=== PATIENT | female | born 1990 | race Caucasian/White ===

== ENCOUNTER 2017-11-24 10:51 | Day surgery (SDC) | payer OTHER ==
[~2017-11-24] VITALS: Ht 160 cm; Wt 69.5 kg
[~2017-11-24 10:51] MED LIST: DIPH25TA65 PO; IBUP200T49 PO; NITR100C56 PO; OXYC-302 PO; PNV1TABL4 PO
[2017-11-24] MEDS ORDERED: ONDANSETRON ODT 4 MG ONE (11:17)
[2017-11-24] MEDS ORDERED: MORPHINE SULFATE 4 MG/ML, 1ML ONE ×2 (11:17→12:08)
[2017-11-24] MEDS: MORPHINE SULFATE 4 MG/ML, 1ML IVPush PRN ×2 (11:25→12:10)
[2017-11-24] MEDS ORDERED: ONDANSETRON ODT 4 MG PO ONE (11:30)
[2017-11-24 11:40] LABS: BASOPHILS # (AUTO) 0.02 x10^3/uL (0-0.1); BASOPHILS % (AUTO) 0 % (0-1); EOSINOPHILS # (AUTO) 0.09 x10^3/uL (0-0.4); EOSINOPHILS % (AUTO) 1 % (1-7); LYMPHOCYTES # (AUTO) 1.26 x10^3/uL (1-3.4); LYMPHOCYTES % (AUTO) 17 % (22-44); MD NO; MEAN CORPUSCULAR HEMOGLOBIN 31.2 pg (27.0-34.8); MEAN CORPUSCULAR HGB CONC 34.5 g/dL (32.4-35.8); MEAN CORPUSCULAR VOLUME 90.4 fL (80-100); MEAN PLATELET VOLUME 9.5 fL (7.4-10.4); MONOCYTES # (AUTO) 0.54 x10^3/uL (0.2-0.8); MONOCYTES % (AUTO) 7 % (2-9); NEUTROPHILS # (AUTO) 5.72 x10^3/uL (1.8-6.8); NEUTROPHILS % (AUTO) 75 % (42-75); PLATELET COUNT 273 x10^3/uL (130-400); RED BLOOD COUNT 5.03 x10^6/uL (3.82-5.3); RED CELL DISTRIBUTION WIDTH 13.1 % (9.6-15.2)
[2017-11-24 11:49] LABS: ANION GAP 9 mmol/L (5-15); CALCIUM 8.8 mg/dL (8.5-10.1); CHLORIDE 104 mmol/L (98-107)
[2017-11-24 11:55] LABS: ALANINE AMINOTRANSFERASE 29 U/L (12-78); ALKALINE PHOSPHATASE 64 U/L (45-117); BILIRUBIN,TOTAL 0.5 mg/dL (0.2-1.0); TOTAL PROTEIN 7.8 g/dL (6.4-8.2)
[2017-11-24 12:24] LABS: MICROSCOPIC AUTO
[2017-11-24 12:25] LABS: CULTURE INDICATED? YES
[2017-11-24] MEDS ORDERED: CEFTRIAXONE PMX 1GM/50ML 50 ML ONE (12:41)
[2017-11-24] MEDS ORDERED: CEFTRIAXONE 1,000 MG IV ONE (13:00)
[2017-11-24] MEDS ORDERED: CEFTRIAXONE 1,000 MG in SODIUM CHLORIDE 0.9% 50 ML IVPB ONE (13:00)
[2017-11-24] MEDS ORDERED: PROMETHAZINE 25 MG/ML, 1ML ONE (13:02)
[2017-11-24] MEDS ORDERED: PROMETHAZINE 25 MG/ML, 1ML IM ONE (14:00)
[2017-11-24] MEDS ORDERED: BUPIVACAINE/PF-EPI 0.5% 1:200K ONE (14:05)
[2017-11-24] MEDS ORDERED: KETOROLAC 30 MG/1 ML ONE (14:13)
[2017-11-24] MEDS ORDERED: FENTANYL PF 100 MCG/2ML ONE ×3 (14:14→15:13)
[2017-11-24] MEDS ORDERED: MIDAZOLAM 1 MG/ML, 2ML ONE (14:14)
[2017-11-24] MEDS ORDERED: LABETALOL 5MG/ML, 20ML IV PRN (14:30)
[2017-11-24] MEDS ORDERED: MEPERIDINE/PF 25MG/0.5ML IVPush PRN (14:30)
[2017-11-24] MEDS ORDERED: HYDROmorphone 1 MG/ML, 1ML IV PRN ×2 (14:30→17:00)
[2017-11-24] MEDS ORDERED: MIDAZOLAM 1 MG/ML, 2ML IV PRN (14:30)
[2017-11-24] MEDS ORDERED: PROMETHAZINE 25 MG/ML, 1ML IV PRN (14:30)
[2017-11-24] MEDS ORDERED: ONDANSETRON ODT 8 MG PO PRN (14:30)
[2017-11-24] MEDS ORDERED: EPHEDRINE 50 MG/ML, 1ML IM PRN (14:30)
[2017-11-24] MEDS ORDERED: OXYcodone 5 MG/5 ML ORAL.SOL UDC PO PRN (14:30)
[2017-11-24] MEDS ORDERED: ACETAMINOPHEN 325 MG TABLET PO PRN (14:30)
[2017-11-24] MEDS ORDERED: SCOPOLAMINE PATCH, 1.5MG PATCH.TD72 TD PRN (14:30)
[2017-11-24] MEDS ORDERED: ONDANSETRON 2MG/ML, 2ML IV PRN (14:30)
[2017-11-24] MEDS ORDERED: ALBUTEROL/IPRATROPIUM 2.5MG/0.5MG, 3 ML NPPB PRN (14:30)
[2017-11-24] MEDS ORDERED: FENTANYL PF 100 MCG/2ML IV PRN (14:30)
[2017-11-24] MEDS ORDERED: SUGAMMADEX 200 MG/2 ML IVPush ONE (14:53)
[2017-11-24] MEDS ORDERED: CEFAZOLIN 1,000 MG ONE (15:01)
[2017-11-24] MEDS ORDERED: NEOSTIGMINE 1 MG/ML, 10ML ONE (15:01)
[2017-11-24] MEDS ORDERED: PROPOFOL 10 MG/ML, 20ML ONE (15:01)
[2017-11-24] MEDS ORDERED: GLYCOPYRROLATE 0.2MG/1ML, 5ML ONE (15:01)
[2017-11-24] MEDS ORDERED: ROCURONIUM 10MG/ML,5ML ONE (15:01)
[2017-11-24] MEDS ORDERED: SUCCINYLCHOLINE 20 MG/ML, 10ML ONE (15:01)
[2017-11-24] MEDS ORDERED: DEXAMETHASONE 4 MG/ML, 1ML ONE (15:01)
[2017-11-24] MEDS ORDERED: ONDANSETRON 2MG/ML, 2ML ONE (15:01)
[2017-11-24] MEDS ORDERED: ACETAMINOPHEN 650 MG/20.3 ML UDC ONE (15:13)
[2017-11-24] MEDS ORDERED: OXYcodone 5 MG/5 ML ORAL.SOL UDC ONE (15:13)
[2017-11-24] MEDS ORDERED: MEPERIDINE/PF 50 MG/ML ONE (15:17)
[2017-11-24 16:28] VITALS: BP 139/89
[2017-11-24] MEDS ORDERED: OXYcodone/APAP 5/325MG TABLET PO PRN (17:00)
[2017-11-24] MEDS ORDERED: LACTATED RINGERS 1,000 ML IV SCH (17:00)
[2017-11-24] MEDS ORDERED: ONDANSETRON 2MG/ML, 2ML IVPush PRN (17:00)
[2017-11-24] MEDS ORDERED: MORPHINE SULFATE 4 MG/ML, 1ML IVPush PRN (17:00)
[2017-11-24] MEDS ORDERED: HYDR-3237 PO (17:17)
[2017-11-24] MEDS ORDERED: ONDA4TAB13 SL (17:18)
[2017-11-24] MEDS: HYDROcodone/APAP 5/325 TABLET PO PRN ×2 (18:06→20:27)
[2017-11-24 20:30] VITALS: BP 127/85
== END 2017-11-24 21:10 | disposition home or self-care (01) ==
LOC: ED 12:31 → UNDOADMIN 12:34 → EDIP 12:34 → OR 12:34 → 4NOR 16:20 → EDIP 16:20 → UNDODISIN 21:10 → OR 21:10
PROVIDERS: ATTEND Surgery
DX: K80.12 Calculus of gallbladder with acute and chronic cholecystitis without obstruction (principal); Z88.8 Allergy status to other drugs, medicaments and biological substances; Z91.040 Latex allergy status; J45.909 Unspecified asthma, uncomplicated
CPT/HCPCS: 36415; 47562; 76700; 80053; 81001; 83690; 84703; 85025; 87086; 88304; 96365; 96372; 96375; 96376; 99285; J0330; J0690; J0696; J1100; J1885; J2175; J2250; J2405; J2550; J2704; J2710; J3010; J3490; Q0162; G0378

== ENCOUNTER 2017-12-22 19:01 | Emergency (ER) | payer OTHER ==
[~2017-12-22] VITALS: Ht 160 cm; Wt 72.0 kg
[~2017-12-22 19:01] MED LIST changes: +HYDR-3237 PO; +ONDA4TAB13 SL
[2017-12-22] MEDS ORDERED: ONDANSETRON ODT 4 MG ONE (19:50)
[2017-12-22 19:51] LABS: BASOPHILS # (AUTO) 0.03 x10^3/uL (0-0.1); BASOPHILS % (AUTO) 0 % (0-1); EOSINOPHILS # (AUTO) 0.76 x10^3/uL (0-0.4); EOSINOPHILS % (AUTO) 10 % (1-7); LYMPHOCYTES # (AUTO) 2.82 x10^3/uL (1-3.4); LYMPHOCYTES % (AUTO) 36 % (22-44); MD NO; MEAN CORPUSCULAR HEMOGLOBIN 30.6 pg (27.0-34.8); MEAN CORPUSCULAR HGB CONC 33.7 g/dL (32.4-35.8); MEAN CORPUSCULAR VOLUME 90.9 fL (80-100); MEAN PLATELET VOLUME 8.8 fL (7.4-10.4); MONOCYTES # (AUTO) 0.47 x10^3/uL (0.2-0.8); MONOCYTES % (AUTO) 6 % (2-9); NEUTROPHILS # (AUTO) 3.69 x10^3/uL (1.8-6.8); NEUTROPHILS % (AUTO) 48 % (42-75); PLATELET COUNT 309 x10^3/uL (130-400); RED BLOOD COUNT 4.55 x10^6/uL (3.82-5.3); RED CELL DISTRIBUTION WIDTH 13.2 % (9.6-15.2)
[2017-12-22] MEDS ORDERED: MORPHINE SULFATE 4 MG/ML, 1ML ONE ×2 (19:51→20:58)
[2017-12-22 19:54] LABS: ALANINE AMINOTRANSFERASE 21 U/L (12-78); ALBUMIN 3.9 g/dL (3.4-5.0); ANION GAP 8 mmol/L (5-15); CALCIUM 8.5 mg/dL (8.5-10.1); CHLORIDE 107 mmol/L (98-107); CREATININE 0.78 mg/dL (0.55-1.02)
[2017-12-22 19:58] LABS: ALKALINE PHOSPHATASE 65 U/L (45-117); BILIRUBIN,TOTAL 0.4 mg/dL (0.2-1.0); TOTAL PROTEIN 7.4 g/dL (6.4-8.2)
[2017-12-22] MEDS ORDERED: ONDANSETRON ODT 4 MG PO ONE (20:00)
[2017-12-22] MEDS ORDERED: SODIUM CHLORIDE FLUSH 10ML SYR IVF ONE (20:00)
[2017-12-22] MEDS: MORPHINE SULFATE 4 MG/ML, 1ML IVPush PRN ×2 (20:05→21:02)
[2017-12-22 20:16] LABS: MICROSCOPIC AUTO
[2017-12-22 20:18] LABS: CULTURE INDICATED? YES
[2017-12-22 22:12] VITALS: BP 116/67
[2017-12-22] MEDS ORDERED: OMNIPAQUE 350 MG/ML, 100ML BOTTLE ONE (22:14)
== END 2017-12-22 22:14 | disposition home or self-care (01) ==
LOC: ED 20:02
DX: R10.11 Right upper quadrant pain (principal); R11.0 Nausea; R19.7 Diarrhea, unspecified; Z90.49 Acquired absence of other specified parts of digestive tract
CPT/HCPCS: 36415; 74177; 76830; 80053; 81001; 83690; 84703; 85025; 87086; 96374; 96376; 99285; Q0162; Q9967